=== PATIENT | female | born 1950 | race Caucasian/White ===

== ENCOUNTER → 2016-06-22 | Outpatient (CLI) | payer OTHER ==
[~2016-06-22] MED LIST: ASCO1CAP3 PO; ASPCH81X PO; ATOR10TA82 PO; B-CO1TAB21 PO; CALCTAB5 PO; EVEN1000 PO; MAGN250T3 PO; MULTCHW PO; OMEGCAP2 PO; SOY40TAB5 PO
[2016-06-22 10:31] LABS: BASO % 0.5 %; BASO ABS # 0.02 K/uL (0-0.2); COMPLETE YES; EOS % 1.6 %; MEAN CELL VOLUME 91.1 fL (80-100); MEAN CORPUSCULAR HEMOGLOBIN 30.7 pg (25-34); MEAN CORPUSCULAR HGB CONC 33.7 g/dl (32-36); MEAN PLATELET VOLUME 9.8 fL (7.4-10.4); NEUT % 47.9 %; PLATELET COUNT 275 K/uL (130-400); WHITE BLOOD COUNT 3.66 K/uL (4.8-10.8)
[2016-06-22 10:49] LABS: ESTIMATED AVERAGE GLUCOSE 103 mg/dl; HA1C FLAG Normal (Normal)
[2016-06-22 10:53] LABS: BLOOD UREA NITROGEN 18 mg/dl (7-18); BUN/CREATININE RATIO 21.6 (10-20); CALCIUM 8.8 mg/dl (8.5-10.1); CARBON DIOXIDE 33 mmol/L (21-32); CHLORIDE 106 mmol/L (98-107); CREATININE 0.82 mg/dl (0.60-1.20); GLUCOSE 88 mg/dl (70-99); HDL CHOLESTEROL 50 mg/dl; POTASSIUM 3.9 mmol/L (3.5-5.1); SODIUM 143 mmol/L (136-145)
[2016-06-22 11:07] LABS: ALB/GLOB RATIO 1.3 (0.9-2); ALKALINE PHOSPHATASE 52 U/L (45-117); ALT/SGPT 37 U/L (12-78); AST/SGOT 30 U/L (15-37); CHOLESTEROL 149 mg/dl (0-200); LDL CHOLESTEROL CALCULATED 83 mg/dl; PHOSPHORUS 3.8 mg/dl (2.5-4.9); TRIGLYCERIDES 78 mg/dl (0-150); VERY LOW DENSITY LIPOPROT CALC 16 mg/dl
[2016-06-24 09:34] LABS: C-REACTIVE PROT HIGHSEN <0.2 MG/L
== END | disposition home or self-care (01) ==
LOC: C.LABBC 08:55
PROVIDERS: ATTEND Family Medicine
DX: R73.09 Other abnormal glucose (principal)